=== PATIENT | female | born 2000 ===

== ENCOUNTER → 2023-07-24 | Outpatient (CLI) | payer OTHER ==
[~2023-07-24] MED LIST: DESYREL 50MG50 MG PO; DULCOLAX STOOL100 MG PO; MAG-OX 400400 MG/TAB PO; MELATIN 3 MG-11 TAB PO; PROTONIX 40MG T40 MG PO; VITAMIN D362.5 MC1 PO
== END ==
LOC: COL.RAD 09:14
DX: N93.9 Abnormal uterine and vaginal bleeding, unspecified (principal)
CPT/HCPCS: 26115